=== PATIENT | male | born 1980 | race Caucasian/White ===

== ENCOUNTER 2022-03-20 20:03 | Emergency (ER) | payer OTHER ==
[~2022-03-20] VITALS: Ht 175.3 cm; Wt 95.3 kg
[2022-03-20 20:16] VITALS: BP_SYST 147
--- NOTE | 2022-03-20 20:16 | NUR ---
Patient to ER chair 2 to gown for evaluation. Side rails up. Report given to Kylee POWELL.
--- NOTE | 2022-03-20 20:20 | NUR ---
Patient brought in accompanied by NANO Chacon for medical clearance after hitting a door with bilateral hands. pain 08/21. vss.
[2022-03-20] MEDS ORDERED: LABETALOL HCL 20 MG/4 ML CARTRIDGE IVP ONE (20:45)
--- NOTE | 2022-03-20 21:01 | NUR ---
# 20 gauge angiocath placed to lac. Use of asceptic technique. Opsite placed over site. Blood return noted. Flushed with 10 cc of normal saline. No evidence of infiltration noted. Patient tolerated well.
[2022-03-20 21:02] VITALS: BP_SYST 142
--- NOTE | 2022-03-20 21:05 | NUR ---
Patient and [facility] [place] given written and verbal discharge instructions and verbalizes understanding. ER MD discussed with patient the results and treatment provided. Patient in stable condition. ID arm band removed. IV catheter removed intact and dressing applied, no active bleeding. No Rx given Patient educated on pain management and to follow up with PMD. Pain Scale 0/10 Opportunity for questions provided and answered.
== END 2022-03-20 21:00 ==
LOC: EDBD 20:03 → SED 20:03
DX: Z02.89 Encounter for other administrative examinations (principal); I10 Essential (primary) hypertension; Z79.899 Other long term (current) drug therapy
CPT/HCPCS: 93005; 99283

== ENCOUNTER 2022-05-12 13:38 | Emergency (ER) | payer OTHER ==
[~2022-05-12] VITALS: Ht 175.3 cm; Wt 93.4 kg
[2022-05-12 13:43] VITALS: BP_SYST 156
--- NOTE | 2022-05-12 13:45 | NUR ---
Patient triaged and placed in waiting room. VSS and patient appears in no acute distress at this time. Accompanied by SELF, awaiting available bed, and MD notified of need for MSE.
[2022-05-12 15:48] LABS: BASOPHILS % (AUTO) 0.4 % (0.0-2.0); EOSINOPHILS % (AUTO) 0.1 % (0.0-4.0); HEMATOCRIT 48.9 % (36-54); HEMOGLOBIN 16.8 g/dL (14.0-18.0); LYMPHOCYTES # (AUTO) 2.6 K/uL (1.0-5.5); LYMPHOCYTES % (AUTO) 24.4 % (20.5-51.5); MEAN CORPUSCULAR HEMOGLOBIN 30 pg (27-31); MEAN CORPUSCULAR HGB CONC 35 % (32-36); MEAN CORPUSCULAR VOLUME 87 fL (79.0-98.0); MONOCYTES # (AUTO) 0.6 K/uL (0.0-1.0); MONOCYTES % (AUTO) 5.5 % (1.7-9.3); NEUTROPHILS # (AUTO) 7.5 K/uL (1.8-7.7); NEUTROPHILS % (AUTO) 69.6 % (40.0-70.0); PLATELET COUNT (AUTO) 280 K/uL (130-430); RED BLOOD CELL COUNT(AUTO) 5.64 MIL/uL (4.2-6.2); RED CELL DISTRIBUTION WIDTH 18.6 % (9.0-15.0); WHITE BLOOD COUNT (AUTO) 10.8 K/uL (4.8-10.8)
[2022-05-12 16:08] LABS: ANION GAP 12 (5-15); CALCIUM 9.3 mg/dL (8.4-11.0); CHLORIDE 101 mmol/L (98-107); CREATININE 0.89 mg/dL (0.55-1.30); GLUCOSE 118 mg/dL (70-99); UREA NITROGEN, BLOOD 7 mg/dL (8-21)
[2022-05-12 16:10] LABS: GFR AFRICAN AMERICAN 121 mL/min (>90)
[2022-05-12 16:17] LABS: ALANINE AMINOTRANSFERASE 38 U/L (12-78); ALBUMIN 4.2 g/dL (3.4-4.8); ASPARTATE AMINOTRANSFERASE 33 U/L (10-37)
--- NOTE | 2022-05-12 16:19 | NUR ---
urine sent to lab
--- NOTE | 2022-05-12 16:42 | NUR ---
PATIENT BROUGHT IN FOR PALPITATIONS SINCE LAST NIGHT AFTER HIS APPLE WATCH TOLD HIM HE HAD AN ABNORMAL RHYTHM AND TOLD HIM TO PRESENT TO ED. PATIENT REPORTS HE DRANK A HEAVILY CAFFEINATED DRINK LAST NIGHT AND VOMITED. DENIES chest pain, shortness of breath, and abdominal pain. Patient is currently taking lisinopril and aspirin. No alleviating or aggravating factors.
--- NOTE | 2022-05-12 16:45 | NUR ---
ER Dr. MUÑOZ IN TRIAGE examining patient.
[2022-05-12] MEDS ORDERED: ONDA-8 TL (16:51)
[2022-05-12 16:57] LABS: BARBITURATE, URINE NEGATIVE (NEG <=200); BENZODIAZEPINE, URINE NEGATIVE (NEG <=150); CANNABINOID, URINE NEGATIVE (NEG <=50); COCAINE, URINE NEGATIVE (NEG <=150); METHAMPHETAMINES SCREEN,URINE NEGATIVE (NEG <=500); OPIATE, URINE NEGATIVE (NEG <=100); PHENCYCLIDINE SCREEN,URINE NEGATIVE (NEG <=25); UR TRICYCLIC ANTIDEPRESSANTS NEGATIVE (NEG <=300); URINE AMPHETAMINE NEGATIVE (NEG <=500); URINE METHADONE NEGATIVE (NEG <=200); URINE OXYCODONE SCREEN NEGATIVE (NEG <=100); URINE PROPOXYPHENE SCREEN NEGATIVE (NEG <=300)
[2022-05-12 16:59] VITALS: BP_SYST 132
--- NOTE | 2022-05-12 16:59 | NUR ---
Patient given written and verbal discharge instructions and verbalizes understanding. ER MD discussed with patient the results and treatment provided. Patient in stable condition. ID arm band removed. Rx of ZOFRAN given. Patient educated on pain management and to follow up with PMD. Pain Scale 0/10 Opportunity for questions provided and answered. Medication side effect fact sheet provided.
[2022-05-12 17:16] LABS: THYROID STIMULATING HORMONE 2.16 uIu/mL (0.34-4.82)
== END 2022-05-12 16:59 | disposition home or self-care (01) ==
LOC: SED 13:38
DX: R00.2 Palpitations (principal); R11.10 Vomiting, unspecified; Z79.899 Other long term (current) drug therapy
CPT/HCPCS: 36415; 71045; 80053; 80307; 82550; 83880; 84439; 84443; 84484; 85025; 99284